=== PATIENT | male | born 1990 | race Caucasian/White ===

== ENCOUNTER 2018-10-15 14:28 | Observation (INO) | payer BC ==
[2018-10-15] MEDS: KETOROLAC 30 MG INJ IM (15:16)
[2018-10-15] MEDS: HYDROCODONE/APAP (10/325) TAB PO (15:17)
[2018-10-15 16:14] LABS: ADD UMIC NO; UR ASCORBIC ACID NEGATIVE (NEGATIVE); UR BILIRUBIN (Dip) NEGATIVE (NEGATIVE); UR BLOOD (Dip) NEGATIVE (NEGATIVE); UR CLARITY CLEAR (CLEAR); UR COLOR YELLOW (YELLOW); UR GLUCOSE (Dip) NEGATIVE (NEGATIVE); UR KETONES (Dip) NEGATIVE (NEGATIVE); UR LEUKOCYTE ESTERASE (Dip) NEGATIVE Leu/ul (NEGATIVE); UR NITRITE (Dip) NEGATIVE (NEGATIVE); UR SPECIFIC GRAVITY (Dip) 1.021 (1.003-1.030); UR TOTAL PROTEIN (Dip) NEGATIVE (NEGATIVE); UR UROBILINOGEN (Dip) NEGATIVE (NEGATIVE)
[2018-10-15] MEDS: HYDROmorphONE 2 MG/ML SYG IM (16:34)
[2018-10-15] MEDS: DIAZEPAM 5 MG TAB PO (18:24)
[2018-10-15] MEDS ORDERED: ACETAMINOPHEN 325 MG TAB PO (20:00)
[2018-10-15] MEDS ORDERED: ONDANSETRON 4 MG INJ IV (20:00)
[2018-10-15] MEDS: DEXAMETHASONE 10 MG/ML 1 ML INJ IV (23:57)
[2018-10-16] MEDS ORDERED: HYDROCODONE/APAP (5/325) TAB PO
[2018-10-16] MEDS ORDERED: NACL 0.9% 3 ML SYG IV
[2018-10-16] MEDS ORDERED: ACETAMINOPHEN 325 MG TAB PO
[2018-10-16] MEDS ORDERED: ONDANSETRON 4 MG INJ IV
[2018-10-16 05:07] LABS: ADD MAN DIFF? NO
[2018-10-16 05:11] LABS: BASOPHIL # 0.1 10^3/ul (0.0-0.1); BASOPHILS % 0.5 % (0.0-2.0); EOSINOPHILS % 0.3 % (0.0-7.0); HEMATOCRIT 45.9 % (42.0-52.0); LYMPHOCYTES # 0.8 10^3/ul (0.8-2.9); LYMPHOCYTES % 6.7 % (15.0-51.0); MEAN CORPUSCULAR HEMOGLOBIN 30.6 pg (29.0-33.0); MEAN CORPUSCULAR HGB CONC 34.9 g/dl (32.0-37.0); MEAN CORPUSCULAR VOLUME 87.8 fl (82.0-101.0); MEAN PLATELET VOLUME 10.3 fl (7.4-10.4); MONOCYTE # 0.1 10^3/ul (0.3-0.9); MONOCYTES % 0.8 % (0.0-11.0); NEUTROPHIL # 10.8 10^3/ul (1.6-7.5); NEUTROPHILS % 91.3 % (39.0-77.0); PLATELET COUNT 294 10^3/UL (140-415); RED BLOOD COUNT 5.23 10^6/ul (4.70-6.10); RED CELL DISTRIBUTION WIDTH 11.7 % (11.5-14.5)
[2018-10-16 05:11] LABS: WHITE BLOOD COUNT 11.9 10^3/ul (4.8-10.8)
[2018-10-16 05:27] LABS: ALANINE AMINOTRANSFERASE 41 IU/L (13-69); ALBUMIN 4.3 g/dl (3.3-4.9); ALBUMIN/GLOBULIN RATIO 1.13; ALKALINE PHOSPHATASE 137 IU/L (42-121); ANION GAP 9 (5-13); ASPARTATE AMINO TRANSFERASE 31 IU/L (15-46); BILIRUBIN,INDIRECT 0.4 mg/dl (0-1.1); BILIRUBIN,TOTAL 0.4 mg/dl (0.2-1.3); BLOOD UREA NITROGEN 17 mg/dl (7-20); CALCIUM 9.6 mg/dl (8.4-10.2); CARBON DIOXIDE 25 mmol/L (21-31); CHLORIDE 106 mmol/L (97-110); CHOL/HDL RATIO 4.3 RATIO; CHOLESTEROL 213 mg/dl (100-200); Estimated GFR > 60 mL/min (>60); GLUCOSE 175 mg/dl (70-220); HDL CHOLESTEROL 49 mg/dl (30-63); LDL CHOLESTEROL,CALCULATED 136 mg/dl; MAGNESIUM 2.2 mg/dl (1.7-2.5); PHOSPHORUS 1.8 mg/dl (2.5-4.9); POTASSIUM 4.5 mmol/L (3.5-5.1); SODIUM 140 mmol/L (135-144); TOTAL PROTEIN 8.1 g/dl (6.1-8.1); TRIGLYCERIDES 140 mg/dl (0-149)
[2018-10-16] MEDS: DEXAMETHASONE 10 MG/ML 1 ML INJ IV ×3 (05:34→18:07)
[2018-10-16] MEDS: HYDROCODONE/APAP (5/325) TAB PO ×3 (06:13→18:14)
[2018-10-16 07:04] LABS: HEMOGLOBIN A1C 5.1 % (0-5.9)
[2018-10-16] MEDS: CYCLOBENZAPRINE 10 MG TAB PO ×3 (08:58→20:39)
[2018-10-16] MEDS: DULOXETINE 30 MG CAP DR PO (08:58)
[2018-10-16] MEDS: HEPARIN 5,000 UNIT/1 ML VIAL SC ×2 (09:13→20:43)
[2018-10-17] MEDS: DEXAMETHASONE 10 MG/ML 1 ML INJ IV ×3 (00:16→11:50)
[2018-10-17] MEDS: HYDROCODONE/APAP (5/325) TAB PO ×3 (00:16→15:22)
[2018-10-17 05:08] LABS: ADD MAN DIFF? NO
[2018-10-17 05:11] LABS: WHITE BLOOD COUNT 17.9 10^3/ul (4.8-10.8)
[2018-10-17 05:11] LABS: BASOPHILS % 0.1 % (0.0-2.0); HEMATOCRIT 44.9 % (42.0-52.0); HEMOGLOBIN 15.4 g/dl (14.0-18.0); LYMPHOCYTES % 5.6 % (15.0-51.0); MEAN CORPUSCULAR HEMOGLOBIN 30.4 pg (29.0-33.0); MEAN CORPUSCULAR HGB CONC 34.3 g/dl (32.0-37.0); MEAN CORPUSCULAR VOLUME 88.7 fl (82.0-101.0); MEAN PLATELET VOLUME 10.4 fl (7.4-10.4); MONOCYTES % 5.7 % (0.0-11.0); NEUTROPHIL # 15.8 10^3/ul (1.6-7.5); PLATELET COUNT 316 10^3/UL (140-415); RED BLOOD COUNT 5.06 10^6/ul (4.70-6.10); RED CELL DISTRIBUTION WIDTH 11.8 % (11.5-14.5)
[2018-10-17 05:32] LABS: ANION GAP 8 (5-13); BLOOD UREA NITROGEN 20 mg/dl (7-20); CALCIUM 9.5 mg/dl (8.4-10.2); CARBON DIOXIDE 28 mmol/L (21-31); CHLORIDE 105 mmol/L (97-110); CREATININE 0.85 mg/dl (0.61-1.24); Estimated GFR > 60 mL/min (>60); GLUCOSE 132 mg/dl (70-220); MAGNESIUM 2.1 mg/dl (1.7-2.5); PHOSPHORUS 3.6 mg/dl (2.5-4.9); SODIUM 141 mmol/L (135-144)
[2018-10-17] MEDS: DULOXETINE 30 MG CAP DR PO (08:42)
[2018-10-17] MEDS: CYCLOBENZAPRINE 10 MG TAB PO ×2 (08:42→13:04)
[2018-10-17] MEDS: HEPARIN 5,000 UNIT/1 ML VIAL SC (08:45)
== END 2018-10-17 16:25 | disposition home or self-care (01) ==
LOC: E/R 14:28 → MS1 19:33
DX: M48.07 Spinal stenosis, lumbosacral region (principal); D72.829 Elevated white blood cell count, unspecified; E66.9 Obesity, unspecified; E87.6 Hypokalemia
CPT/HCPCS: 72131; 72149; 80048; 80053; 80061; 81003; 83036; 83735; 84100; 85025; 96372; 97161; 97166; 99285-25